=== PATIENT | female | born 1995 | race Hispanic/Latino ===

== ENCOUNTER 2017-11-30 18:11 | Emergency (ER) | payer OTHER, SELFPAY ==
[2017-11-30] MEDS ORDERED: NA CHLORIDE 0.9% 1,000 ML ONE (18:42)
[2017-11-30 18:54] LABS: Absolute Lymphocytes (CBC) 2.3 K/uL (0.7-4.9); Absolute Monocytes 0.9 K/uL (0.1-1.3); Absolute Neutrophil 6.5 K/uL (1.8-8.0); Basophils % 0.2 % (0-1.3); Eosinophils % 2.1 % (0-4.4); Hematocrit 41.6 % (36.0-45.0); Lymphocytes % 22.8 % (15.3-44.8); MCH 30.3 pg (27.0-35.0); MCV 90.8 fL (80-100); MPV 9.3 fL (7.6-11.3); Monocytes % 8.8 % (3.3-12.3); RBC Red Blood Cell Count 4.58 M/uL (3.86-4.86)
[2017-11-30 18:54] LABS: Urine Blood 3+ (NEG); Urine Glucose NEGATIVE (NEG); Urine Protein 3+ (NEG)
[2017-11-30 19:25] LABS: Potassium 3.7 mmol/L (3.5-5.1)
--- NOTE | 2017-11-30 20:32 | ER ---
Nurse's Notes [facility] Name: Callum Alcaraz Age: 22 yrs Sex: Female : 1995 Arrival Date: 11/30/2017 Time: 18:14 Bed 30 Private MD: None, None Diagnosis: Urinary tract infection, site not specified;Threatened Presentation: 11/30 18:19 Presenting complaint: Patient states: Vaginal bleeding since yesterday. Positive home aj test. Transition of care: patient was not received from another setting of care. Onset of symptoms was November 30, 2017. Risk Assessment: Do you want to hurt yourself or someone else? Patient reports no desire to harm self or others. Initial Sepsis Screen: Does the patient meet any 2 criteria? No. Patient's initial sepsis screen is negative. Does the patient have a suspected source of infection? No. Patient's initial sepsis screen is negative. Care prior to arrival: None. 18:19 Method Of Arrival: Ambulatory aj 18:19 Acuity: MORE 3 aj Triage Assessment: 18:21 General: Appears in no apparent distress. comfortable, Behavior is calm, cooperative, aj appropriate for age. Pain: Denies pain. Neuro: Level of Consciousness is awake, alert, obeys commands, Oriented to person, place, time, situation, Appropriate for age. Respiratory: Airway is patent Respiratory effort is even, unlabored, Respiratory pattern is regular, symmetrical. : Reports vaginal bleeding that is brown. Derm: Skin is intact, is healthy with good turgor, Skin is pink, warm \T\ dry. normal. ULTRASOUND TECHNOL: 18:21 9, Full Term 2, Premature 1, 5, Living 3, LMP N/A - Irregular menses aj 18:32 9, Full Term 2, Premature 1, 5, Living 3 mariama Historical: - Allergies: 18:21 No Known Allergies; aj - Home Meds: 18:21 None [Active]; aj - PMHx: 18:21 Seizures; detatched retina; Shaken Baby Syndrome; CVA; aj - PSHx: 18:21 ; aj - Immunization history:: Adult Immunizations up to date. - Social history:: Smoking status: Patient/guardian denies using tobacco. - Ebola Screening: : Patient negative for fever greater than or equal to 101.5 degrees Fahrenheit, and additional compatible Ebola Virus Disease symptoms Patient denies exposure to infectious person Patient denies travel to an Ebola-affected area in the 21 days before illness onset No symptoms or risks identified at this time. - Family history:: not pertinent. Screenin:29 Abuse screen: Denies threats or abuse. Denies injuries from another. Nutritional mg2 screening: No deficits noted. Tuberculosis screening: No symptoms or risk factors identified. Fall Risk IV access (20 points). Assessment: 20:27 Obstetrical Assessment: General assessment: skin warm and dry. General: Appears in no mg2 apparent distress. comfortable, Behavior is calm, cooperative. Pain: Complains of pain in suprapubic area Pain does not radiate. Pain currently is 5 out of 10 on a pain scale. Quality of pain is described as aching, Pain began gradually, 1 day ago. Is intermittent, Alleviated by relaxation, Aggravated by increased activity. Neuro: No deficits noted. Cardiovascular: Capillary refill < 3 seconds Patient's skin is warm and dry. Respiratory: Airway is patent Respiratory effort is even, unlabored, Respiratory pattern is regular, symmetrical. GI: No signs and/or symptoms were reported involving the gastrointestinal system. : Urine is ameya blood, ameya blood. EENT: No signs and/or symptoms were reported regarding the EENT system. Derm: Skin is intact, Skin is pink, warm \T\ dry. normal. Musculoskeletal: Circulation, motion, and sensation intact. Vital Signs: 18:21 BP 126 / 78; Pulse 111; Resp 16; Temp 99.2; Pulse Ox 99% on R/A; Weight 56.7 kg; Height aj 5 ft. 5 in. (165.10 cm); 19:30 BP 109 / 72; Pulse 99; Resp 18; Pulse Ox 100% on R/A; Pain 3/10; mg2 18:21 Body Mass Index 20.80 (56.70 kg, 165.10 cm) Vitals: 20:55 Heart Tones not done. mg2 ED Course: 18:14 Patient arrived in ED. mr 18:15 None, None is Private Physician. mr 18:20 Triage completed. aj 18:21 Arm band placed on left wrist. Patient placed in an exam room. aj 18:24 Tae Chavarria MD is Attending Physician. mariama 19:00 Inserted saline lock: 18 gauge in right antecubital area, using aseptic technique. mg2 Blood collected. 19:10 Les Allen PA is PHCP. chad 19:19 Ultrasound completed. Patient tolerated well. Notified ED Physician guero. sg3 19:20 US Transvaginal Ob In Process Unspecified. EDMS 19:26 Keagan Browne, RN is Primary Nurse. mg2 20:29 Assist provider with pelvic exam: Set up pelvic tray. Performed by Les DAMIAN mg2 Patient tolerated well. 20:30 Patient has correct armband on for positive identification. Placed in gown. Bed in low mg2 position. Side rails up X 1. Door closed. Warm blanket given. 20:55 IV discontinued, intact, bleeding controlled, No redness/swelling at site. Pressure mg2 dressing applied. Administered Medications: 18:38 Drug: NS 0.9% 1000 ml Route: IV; Rate: 1 bolus; Site: right antecubital; mg2 20:30 Follow up: Response: No adverse reaction; IV Status: Completed infusion mg2 Point of Care Testing: Urine : 19:30 hCG Reading: Positive; mg2 Outcome: 20:32 Discharge ordered by . chad 20:54 Discharged to home ambulatory, with family. mg2 20:54 Condition: stable 20:54 Discharge instructions given to patient, family, Instructed on discharge instructions, follow up and referral plans. medication usage, Demonstrated understanding of instructions, follow-up care, medications. 20:55 Patient left the ED. mg2 Signatures: Dispatcher [employer] EDMS Miya Huerta, RN RN Tae Edge MD MD cha Mickail, Joel, PA PA [facility] Sukhi Erendira Rosie Marquez sg3 Keagan Browne, RN RN mg2
--- NOTE | 2017-11-30 20:33 | EDPHYS ---
Physician Documentation [facility] Name: Callum Alcaraz Age: 22 yrs Sex: Female : 1995 Arrival Date: 11/30/2017 Time: 18:14 Bed 30 Private MD: None, None ED Physician Tae Chavarria HPI: 11/30 18:32 This 22 yrs old Female presents to ER via Ambulatory with complaints of mariama Vaginal Bleeding, + Preg <12wks. 18:32 The patient presents to the emergency department with vaginal bleeding. The estimated mariama gestational age is 8 weeks. Previous pregnancies: in previous pregnancies patient has had vaginal delivery. Associated signs and symptoms: Pertinent positives: abdominal pain. The patient has experienced similar episodes in the past, multiple times. 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 - Social history:: Smoking status: Patient/guardian denies using tobacco. - Ebola Screening: : Patient negative for fever greater than or equal to 101.5 degrees Fahrenheit, and additional compatible Ebola Virus Disease symptoms Patient denies exposure to infectious person Patient denies travel to an Ebola-affected area in the 21 days before illness onset No symptoms or risks identified at this time. - Family history:: not pertinent. ROS: 18:32 Constitutional: Negative for fever, chills, and weight loss, Eyes: Negative for injury, mariama pain, redness, and discharge, ENT: Negative for injury, pain, and discharge, Neck: Negative for injury, pain, and swelling, Cardiovascular: Negative for chest pain, palpitations, and edema, Respiratory: Negative for shortness of breath, cough, wheezing, and pleuritic chest pain, Back: Negative for injury and pain, MS/Extremity: Negative for injury and deformity, Skin: Negative for injury, rash, and discoloration, Neuro: Negative for headache, weakness, numbness, tingling, and seizure, Psych: Negative for depression, anxiety, suicide ideation, homicidal ideation, and hallucinations, Allergy/Immunology: Negative for hives, rash, and allergies, Endocrine: Negative for neck swelling, polydipsia, polyuria, polyphagia, and marked weight changes, Hematologic/Lymphatic: Negative for swollen nodes, abnormal bleeding, and unusual bruising. 18:32 Abdomen/GI: Positive for abdominal pain, of the suprapubic area. 18:32 : Positive for pelvic pain, vaginal bleeding. Exam: 18:43 Constitutional: This is a well developed, well nourished patient who is awake, alert, mariama and in no acute distress. Head/Face: Normocephalic, atraumatic. Eyes: Pupils equal round and reactive to light, extra-ocular motions intact. Lids and lashes normal. Conjunctiva and sclera are non-icteric and not injected. Cornea within normal limits. Periorbital areas with no swelling, redness, or edema. ENT: Nares patent. No nasal discharge, no septal abnormalities noted. Tympanic membranes are normal and external auditory canals are clear. Oropharynx with no redness, swelling, or masses, exudates, or evidence of obstruction, uvula midline. Mucous membranes moist. Neck: Trachea midline, no thyromegaly or masses palpated, and no cervical lymphadenopathy. Supple, full range of motion without nuchal rigidity, or vertebral point tenderness. No Meningismus. Chest/axilla: Normal chest wall appearance and motion. Nontender with no deformity. No lesions are appreciated. Cardiovascular: Regular rate and rhythm with a normal S1 and S2. No gallops, murmurs, or rubs. Normal PMI, no JVD. No pulse deficits. Respiratory: Lungs have equal breath sounds bilaterally, clear to auscultation and percussion. No rales, rhonchi or wheezes noted. No increased work of breathing, no retractions or nasal flaring. Abdomen/GI: Soft, non-tender, with normal bowel sounds. No distension or tympany. No guarding or rebound. No evidence of tenderness throughout. Back: No spinal tenderness. No costovertebral tenderness. Full range of motion. Pelvic Exam: Normal external genitalia. Speculum exam with closed cervical os, no discharge or bleeding noted. Bimanual exam with normal adnexa, no adnexal or cervical motion tenderness. Normal uterus. Skin: Warm, dry with normal turgor. Normal color with no rashes, no lesions, and no evidence of cellulitis. MS/ Extremity: Pulses equal, no cyanosis. Neurovascular intact. Full, normal range of motion. Neuro: Awake and alert, GCS 15, oriented to person, place, time, and situation. Cranial nerves II-XII grossly intact. Motor strength 5/5 in all extremities. Sensory grossly intact. Cerebellar exam normal. Normal gait. Psych: Awake, alert, with orientation to person, place and time. Behavior, mood, and affect are within normal limits. 18:43 Abdomen/GI: Inspection: abdomen appears normal, Bowel sounds: active, Palpation: mild abdominal tenderness, in the suprapubic area, Liver: no appreciated palpable abnormalities, Hernia: not appreciated. 18:43 Musculoskeletal/extremity: 18:43 Musculoskeletal/extremity: Exam is negative for acute changes. [facility] Vital Signs: 18:21 BP 126 / 78; Pulse 111; Resp 16; Temp 99.2; Pulse Ox 99% on R/A; Weight 56.7 kg; Height aj 5 ft. 5 in. (165.10 cm); 19:30 BP 109 / 72; Pulse 99; Resp 18; Pulse Ox 100% on R/A; Pain 3/10; mg2 18:21 Body Mass Index 20.80 (56.70 kg, 165.10 cm) MDM: 18:24 Patient medically screened. [facility] 18:44 Data reviewed: vital signs, nurses notes, lab test result(s), radiologic studies, [facility] ultrasound. 20:28 Counseling: I had a detailed discussion with the patient and/or guardian regarding: the [facility] historical points, exam findings, and any diagnostic results supporting the discharge/admit diagnosis, radiology results, the need for outpatient follow up, to return to the emergency department if symptoms worsen or persist or if there are any questions or concerns that arise at home. ED course: urinalysis shows signs of infection, patient will be treated with oral antibiotics. patient is advised to follow up with obgyn in 2 to 3 days for reevaluation. patient's vitals within normal limits. patient given return precautions. . 11/30 18:32 Order name: Quantitative Hcg; Complete Time: 19:27 [facility] 11/30 18:32 Order name: Abo/rh Typing; Complete Time: 19:19 [facility] 11/30 18:32 Order name: Basic Metabolic Panel; Complete Time: 19:27 [facility] 11/30 18:32 Order name: CBC with Diff; Complete Time: 19:11 mariama 11/30 18:52 Order name: Urine Dipstick--Ancillary (enter results); Complete Time: 19:11 bd 11/30 18:52 Order name: Urine --Ancillary (enter results); Complete Time: 19:11 bd 11/30 18:32 Order name: Urine Test (obtain specimen); Complete Time: 19:27 [facility] 11/30 18:32 Order name: IV Saline Lock; Complete Time: 18:38 [facility] 11/30 18:32 Order name: Labs collected and sent; Complete Time: 18:38 [facility] 11/30 18:32 Order name: NPO; Complete Time: 18:38 [facility] 11/30 18:32 Order name: Urine Dipstick-Ancillary (obtain specimen); Complete Time: 19:27 [facility] 11/30 18:32 Order name: US Transvaginal Ob; Complete Time: 20:40 [facility] 11/30 19:23 Order name: ABO/RH no charge; Complete Time: 19:23 EDMS 11/30 19:22 Order name: Pelvic Exam Setup; Complete Time: 20:02 [facility] Administered Medications: 18:38 Drug: NS 0.9% 1000 ml Route: IV; Rate: 1 bolus; Site: right antecubital; mg2 20:30 Follow up: Response: No adverse reaction; IV Status: Completed infusion mg2 Point of Care Testing: Urine : 19:30 hCG Reading: Positive; mg2 Disposition: 12/01 15:25 Co-signature as Attending Physician, Tae Chavarria MD I agree with the assessment and [facility] plan of care. Disposition: 11/30/17 20:32 Discharged to Home. Impression: Urinary tract infection, site not specified, Threatened . - Condition is Stable. - Discharge Instructions: Threatened Miscarriage, Vaginal Bleeding During , First Trimester, and Urinary Tract Infection. - Prescriptions for Cephalexin 500 mg Oral Capsule - take 1 capsule by ORAL route every 12 hours for 10 days; 20 capsule. - Medication Reconciliation Form, Thank You Letter, Antibiotic Education, Prescription Opioid Use form. - Follow up: Private Physician; When: 2 - 3 days; Reason: Continuance of care. Signatures: Dispatcher [employer] Miya Coley, RN RN Tae Edge MD MD cha Mickail, Joel, PA PA jmm Gardose, Michele, MADHU RN mg2 Corrections: (The following items were deleted from the chart) 11/30 20:55 20:32 11/30/2017 20:32 Discharged to Home. Impression: Urinary tract infection, site mg2 not specified; Threatened . Condition is Stable. Forms are Medication Reconciliation Form, Thank You Letter, Antibiotic Education, Prescription Opioid Use. Follow up: Private Physician; When: 2 - 3 days; Reason: Continuance of care. chad
--- NOTE | 2017-11-30 20:38 | RAD REPORT ---
EXAM DESCRIPTION: US - Transvaginal OB - 11/30/2017 7:19 pm CLINICAL HISTORY: Positive study pelvic pain, abdominal cramping Preliminary findings provided at the time of the study. COMPARISON: None. FINDINGS: Normal size uterus present. No myometrial abnormality. A very irregularly-shaped intrauterine gestational sac identified. Yolk sac and pole are identi fiable. Multiple efforts failed to identify any cardiac activity. pole measures 6 weeks 4 days size. Yolk sac is seen. Both ovaries are identifiable and show no suspicious findings. Blood flow seen in both ovaries. No he morrhage or fluid in the cul-de-sac. IMPRESSION: A 6 week 4 day size pole is identified; however, no cardiac activity is identifiab le. The gestational sac is very irregular in shape. No large hematoma or mass within the endometrial cavi ty.
== END 2017-11-30 20:55 | disposition home or self-care (01) ==
LOC: ER 18:11
DX: O20.0 Threatened abortion (principal); O23.41 Unspecified infection of urinary tract in pregnancy, first trimester; Z3A.08 8 weeks gestation of pregnancy
CPT/HCPCS: 36415; 76817; 80048; 81003; 81025; 84702; 85025; 86900; 86901; 96360; 96361; 99284; J7030

== ENCOUNTER 2020-01-07 11:32 | Emergency (ER) | payer OTHER, SELFPAY ==
--- OUTSIDE RECORDS SUMMARY | 2020-01-07 11:34 | XMS REPORT | Continuity of Care Document ---
:1995 Author Organization [facility] t Address [facility] [place] [address] Care Team Providers Name Role Phone Unavailable Unavailable Unavailable Problems Condition Condition Condition Status Onset Resolution Last Treating Co mments Source Name Details Category Date Date Treatment Clinician Date Benign Benign Problem Active [place] [facility] da hypertensi Hypertensi 00:00: Me dical on on Group complicati Complicati ng ng , , childbirth Childbirth and the and the puerperium Puerperium Uterine Uterine Problem Active [place] from Scar from 09-11 da previous Previous 00:00: Medica l surgery in Surgery in 00 Gr oup , , childbirth Childbirth and the and the puerperium Puerperium with with problem Problem Problem Active [place] 5-03 da 00:00: Medical 00 Group Epilepsy Epilepsy Problem Active [place] in mother in Mother 09-11 da complicati Complicati 00:00: Me dical ng ng 00 Group Allergies, Adverse Reactions, Alerts This patient has no known allergies or adverse reactions. Social History Smoking Status Start Date Stop Date Source Smoker, Current Status Unknown [facility] Medications Ordered Filled Start Stop Current Ordering Indication Dosage Frequency Signature Comments Components Source Medication Medication Date Date Medication? Clinician (SIG) Name Name No [facility] Vital Signs Vital Name Observation Time Observation Value Comments Source BP Diastolic 2018-09-11 00:00:00 89 mm[Hg] [facility] Height 2018-09-11 00:00:00 64 [in_i] [facility] BMI (Body Mass 2018-09-11 00:00:00 26.6 kg/m2 [facility]) Group BP Systolic 2018-09-11 00:00:00 132 mm[Hg] [facility] Body Weight 2018-09-11 00:00:00 154.7 [lb_av] [facility] Procedures Procedure Date / Time Performed Performing Clinician [facility] e US, obstetric, limited 2018-09-11 00:00:00 [facility] Caesarean Section 2016-09-10 00:00:00 [facility] Plan of Care Planned Activity Planned Date Details Comments Source Diagnostic Test 2018-09-11 urinalysis, [facility] dical Pending 00:00:00 dipstick [code = Group urinalysis, dipstick] Encounters Start End Encounter Admission Attending Care Care Encounter Source Date/Time Date/Time Type Type Clinicians Facility Department ID 2018-09-11 2018-09-11 [facility] [place] - [id number] M [facility] 00:00:00 00:00:00 [facility]arreal MD: [address] [facility] [address], [place] [address] , Ph. [phone] Results Test Description Test Time Test Comments Results Result Comments Source Urinalysis macro (dipstick) panel - Urine 2018-09-11 16:26:4 8 Test Item Value Reference Range Interpretation Comme nts Leukocytes (test code = Leukocytes) Small Nitrite (test code = Nitrite) negative Urobilinogen (test code = Urobilinogen) .2 Protein (test code = Protein) Negative pH (test code = pH) 6.5 Blood (test code = Blood) Negative Specific [place] (test code = Specific [place]) 1.020 Ketone (test code = Ketone) Negative Bilirubin (test code = Bilirubin) Negative Glucose (test code = Glucose) Negative Appearance (test code = Appearance) Clear Color (test code = Color) Yellow [facility]
[2020-01-07 12:30] LABS: Absolute Lymphocytes (CBC) 1.9 K/uL (0.7-4.9); Basophils % 0.3 % (0-1.3); Hematocrit 39.8 % (36.0-45.0); Lymphocytes % 20.9 % (15.3-44.8); MPV 9.5 fL (7.6-11.3); RBC Red Blood Cell Count 4.47 M/uL (3.86-4.86)
[2020-01-07 12:54] LABS: Urine Blood NEGATIVE (NEG); Urine Glucose NEGATIVE (NEG); Urine Protein NEGATIVE (NEG); Urine Specific Gravity 1.025 (1.005-1.030)
[2020-01-07 13:00] LABS: BUN Blood Urea Nitrogen 8 mg/dL (7-18); Bicarbonate 24 mmol/L (21-32); Glucose Level 78 mg/dL (74-106); HCG, Quantitative 58612 mIU/mL (1-3); Potassium 3.8 mmol/L (3.5-5.1); Sodium Level 137 mmol/L (136-145)
--- NOTE | 2020-01-07 13:03 | RAD REPORT ---
EXAM DESCRIPTION: US - 1St Trimest Single 1St Fetus - 01/07/2020 12:24 pm CLINICAL HISTORY: pelvic pain, COMPARISON: No comparisons FINDINGS: Single intrauterine gestation is identified. Heart rate is 163 BPM. [place]-rump length mirian urement corresponds to a 12 week 4 day age. Anatomic assessment is grossly unremarkable but is limite d at 12 weeks age. Amniotic fluid volume is normal. Anterior placenta shows no abruption, marginal hematoma or acute fin ding. Neither ovary was identifiable due to bowel. No suspicion for adnexal mass. No blood or fluid in the cul de sac. IMPRESSION: Single 12 week 4 day IUP showing normal heart rate and no gross anatomic abnormality. Amniotic fluid volume is normal. Anterior placenta shows no suspicious finding.
--- NOTE | 2020-01-07 13:21 | EDPHYS ---
Physician Documentation [facility] Name: Callum Alcaraz Age: 24 yrs Sex: Female : 1995 Arrival Date: 01/07/2020 Time: 11:35 Bed 14 Private MD: ED Physician Juliocesar Mccarty HPI: 01/06 11:56 This 24 yrs old Female presents to ER via Ambulatory with complaints of jmm , Abdominal Pain. 11:56 The patient presents with pelvic pain. Onset: The symptoms/episode began/occurred jmm gradually, 2 week(s) ago. Modifying factors: The symptoms are alleviated by nothing, the symptoms are aggravated by nothing. Associated signs and symptoms: Pertinent negatives: fever, vaginal bleeding, vomiting. This is a 24 year old female with a history fo cva, epilepsy that presents to the ED with complaints of pelvic pain which began approx 2 weeks ago. Patient states this occurred after heavy lifting. Denies fever. Denies vaginal bleeding. Patient states having a home test positive.. Historical: - Allergies: 12:00 No Known Allergies; sv - PMHx: 12:00 CVA; detatched retina; Seizures; SHAKEN BABY SYNDROME; sv - PSHx: 12:00 ; Knee surgery; sv - Immunization history:: Adult Immunizations up to date. - Social history:: Smoking status: Patient/guardian denies using tobacco. ROS: 11:56 Constitutional: Negative for fever, chills, and weight loss, Cardiovascular: Negative jmm for chest pain, palpitations, and edema, Respiratory: Negative for shortness of breath, cough, wheezing, and pleuritic chest pain. 11:56 : Positive for pelvic pain. 11:56 All other systems are negative. Exam: 11:56 Constitutional: This is a well developed, well nourished patient who is awake, alert, jmm and in no acute distress. Head/Face: atraumatic. Eyes: EOMI, no conjunctival erythema appreciated ENT: Moist Mucus Membranes Neck: Trachea midline, Supple Chest/axilla: Normal chest wall appearance and motion. Cardiovascular: Regular rate and rhythm. No edema appreciated Respiratory: Normal respirations, no respiratory distress appreciated Abdomen/GI: Non distended, soft Back: Normal ROM Skin: General appearance color normal MS/ Extremity: Moves all extremities, no obvious deformities appreciated, no edema noted to the lower extremities Neuro: Awake and alert, normal gait Psych: Behavior is normal, Mood is normal, Patient is cooperative and pleasant Vital Signs: 11:58 BP 127 / 85; Pulse 95; Resp 16; Temp 98.5; Pulse Ox 100% ; Weight 58.97 kg; Height 5 sv ft. 5 in. (165.10 cm); Pain 3/10; 11:58 Body Mass Index 21.63 (58.97 kg, 165.10 cm) sv MDM: 11:56 Patient medically screened. [facility] 13:19 Data reviewed: vital signs, nurses notes. Counseling: I had a detailed discussion with paxton the patient and/or guardian regarding: the historical points, exam findings, and any diagnostic results supporting the discharge/admit diagnosis, lab results, radiology results, the need for outpatient follow up, to return to the emergency department if symptoms worsen or persist or if there are any questions or concerns that arise at home. ED course: Patient is alert and non toxic in appearance in the ED. US reveals IUP. Patient advised to follow up with OB for further evaluation. Patient is otherwise given strict return precautions. patient understood and agrees with the plan of care.. 01/06 12:01 Order name: Quantitative Hcg; Complete Time: 13:06 [facility] 01/06 12:01 Order name: Abo/rh Typing; Complete Time: 12:50 [facility] 01/06 12:01 Order name: Basic Metabolic Panel; Complete Time: 13:06 [facility] 01/06 12:01 Order name: CBC with Diff; Complete Time: 12:44 [facility] 01/06 12:22 Order name: Urine Dipstick--Ancillary (enter results); Complete Time: 12:55 01/06 12:22 Order name: Urine --Ancillary (enter results); Complete Time: 12:55 01/06 12:01 Order name: Urine Test (obtain specimen); Complete Time: 12:45 [facility] 01/06 12:01 Order name: IV Saline Lock; Complete Time: 12:45 [facility] 01/06 12:01 Order name: Labs collected and sent; Complete Time: 12:45 [facility] 01/06 12:01 Order name: NPO; Complete Time: 12:45 [facility] 01/06 12:01 Order name: Urine Dipstick-Ancillary (obtain specimen); Complete Time: 12:45 [facility] 01/06 12:01 Order name: 1st Trimest Single 1st Fetus; Complete Time: 13:06 [facility] Administered Medications: No medications were administered Disposition: 17:39 Co-signature as Attending Physician, Juliocesar Mccarty MD I agree with the assessment and kdr plan of care. Disposition: 01/07/20 13:20 Discharged to Home. Impression: Pelvic and perineal pain, Urinary tract infection, site not specified. - Condition is Stable. - Discharge Instructions: and Urinary Tract Infection. - Prescriptions for Keflex 500 mg Oral Capsule - take 1 capsule by ORAL route every 12 hours for 10 days; 20 capsule. - Medication Reconciliation Form, Thank You Letter, Antibiotic Education, Prescription Opioid Use form. - Follow up: Private Physician; When: 2 - 3 days; Reason: Recheck today's complaints, Continuance of care, Re-evaluation by your physician. Signatures: Dispatcher [employer] Odilia Hilario RN RN sv Rittger, Kevin, MD MD kdr Mickail, Joel, PA PA [facility] [address], RN RN aa5 Corrections: (The following items were deleted from the chart) 13:34 13:20 01/07/2020 13:20 Discharged to Home. Impression: Pelvic and perineal pain; aa5 Urinary tract infection, site not specified. Condition is Stable. Forms are Medication Reconciliation Form, Thank You Letter, Antibiotic Education, Prescription Opioid Use. Follow up: Private Physician; When: 2 - 3 days; Reason: Recheck today's complaints, Continuance of care, Re-evaluation by your physician. [facility]
--- NOTE | 2020-01-07 13:21 | ER ---
Nurse's Notes [facility] Name: Callum Alcaraz Age: 24 yrs Sex: Female : 1995 Arrival Date: 01/07/2020 Time: 11:35 Bed 14 Private MD: Diagnosis: Pelvic and perineal pain;Urinary tract infection, site not specified Presentation: 01/06 11:58 Chief complaint: Patient states: lower abd pain x 2 days. Reports recent positive UPT 3 sv days ago, has irregular menstrual cycles. Coronavirus screen: Client denies travel out of the [place] in the last 14 days. At this time, the client does not indicate any symptoms associated with coronavirus-19. Ebola Screen: No symptoms or risks identified at this time. Initial Sepsis Screen: Does the patient meet any 2 criteria? HR > 90 bpm. No. Patient's initial sepsis screen is negative. Does the patient have a suspected source of infection? No. Patient's initial sepsis screen is negative. Risk Assessment: Do you want to hurt yourself or someone else? Patient reports no desire to harm self or others. Onset of symptoms was January 05, 2020. 11:58 Method Of Arrival: Ambulatory sv 11:58 Acuity: MORE 3 sv Triage Assessment: 11:58 General: Appears in no apparent distress. uncomfortable, slender, well developed, sv Behavior is calm, cooperative, appropriate for age. Pain: Complains of pain in suprapubic area, right lower quadrant and left lower quadrant Pain currently is 7 out of 10 on a pain scale. Neuro: Level of Consciousness is awake, alert, obeys commands, Oriented to person, place, time, situation, Moves all extremities. Full function Gait is steady. Respiratory: Respiratory effort is even, unlabored, Respiratory pattern is regular, symmetrical. GI: Reports lower abdominal pain. : Denies discharge, vaginal bleeding. Derm: Skin is pink, warm \T\ dry. Historical: - Allergies: 12:00 No Known Allergies; sv - PMHx: 12:00 CVA; detatched retina; Seizures; SHAKEN BABY SYNDROME; sv - PSHx: 12:00 ; Knee surgery; sv - Immunization history:: Adult Immunizations up to date. - Social history:: Smoking status: Patient/guardian denies using tobacco. Screenin:58 Abuse screen: Denies threats or abuse. Denies injuries from another. Nutritional sv screening: No deficits noted. Tuberculosis screening: No symptoms or risk factors identified. Fall Risk None identified. Assessment: 12:55 Reassessment: Patient appears in no apparent distress at this time. No changes from sv previously documented assessment. Patient and/or family updated on plan of care and expected duration. Pain level reassessed. Patient is alert, oriented x 3, equal unlabored respirations, skin warm/dry/pink. 13:30 Reassessment: Patient is alert, oriented x 3, equal unlabored respirations, skin aa5 warm/dry/pink. Vital Signs: 11:58 BP 127 / 85; Pulse 95; Resp 16; Temp 98.5; Pulse Ox 100% ; Weight 58.97 kg; Height 5 sv ft. 5 in. (165.10 cm); Pain 3/10; 11:58 Body Mass Index 21.63 (58.97 kg, 165.10 cm) sv ED Course: 11:35 Patient arrived in ED. mr 11:55 Les Allen PA is PHCP. jmm 11:55 Juliocesar Mccarty MD is Attending Physician. jmm 11:58 Odilia Harris, MADHU is Primary Nurse. sv 11:58 Nurse Practitioner and/or Physician Utilization Review Rn to see patient. sv 11:58 Patient has correct armband on for positive identification. Placed in gown. Bed in low sv position. Call light in reach. Pulse ox on. NIBP on. Door closed. Head of bed elevated. 11:59 Triage completed. sv 12:00 Arm band placed on Patient placed in an exam room, on a stretcher. sv 12:15 Inserted saline lock: 20 gauge in left antecubital area, using aseptic technique. Blood sv collected. Flushed left antecubital with 5 ml normal saline. 12:24 US 1st Trimest Single 1st Fetus In Process Unspecified. EDMS 13:30 No provider procedures requiring assistance completed. IV discontinued, intact, aa5 bleeding controlled, No redness/swelling at site. Pressure dressing applied. Administered Medications: No medications were administered Outcome: 13:20 Discharge ordered by . jmm 13:30 Discharged to home ambulatory. aa5 13:30 Condition: stable 13:30 Discharge instructions given to patient, Instructed on discharge instructions, follow up and referral plans. medication usage, Demonstrated understanding of instructions, follow-up care, medications, Prescriptions given X 1. 13:34 Patient left the ED. aa5 Signatures: Dispatcher [employer] Odilia Hilario, RN Les Garvin PA PA jmm Rivera, Mary mr Jad, MADHU Varner RN aa5
[2020-01-11 12:51] VITALS: BP 127/85; TEMP 98.5; O2SAT 100
== END 2020-01-07 13:34 | disposition home or self-care (01) ==
LOC: ER 11:32
DX: O23.41 Unspecified infection of urinary tract in pregnancy, first trimester (principal); Z3A.12 12 weeks gestation of pregnancy
CPT/HCPCS: 36415; 76801; 80048; 81003; 81025; 84702; 85025; 86900; 86901; 99284

== ENCOUNTER 2023-11-06 18:02 | Emergency (ER) | payer OTHER ==
--- OUTSIDE RECORDS SUMMARY | 2023-11-06 18:07 | XMS REPORT | Continuity of Care Document ---
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 (test code = 3262) Neg Negative - Negati ve POCT U PROT (test code = 3259) Trace Negative - Negat elise POCT U GLU (test code = 3256) Nml Negative - Negati ve POCT U KETONE (test code = 3258) None Negative - Neg ative POCT U BLD (test code = 3257) Trace Negative - Negati ve [facility] W Auto Differential panel - Blood 2020-06-29 08:57:00* Test Item Value Reference Range Interpretation Comme nts white blood count (test code = white blood count) 11.0 K/uL 4.0-11.5 red blood count (test code = red blood count) 3.79 M/uL 3.80-5.20 L hemoglobin (test code = hemoglobin) 11.9 g/dL 10.5-15.7 hematocrit (test code = hematocrit) 36.2 % 34.0-50.0 MCV [Entitic volume] (test c ode = 20452-1) 95.5 fL 86-100 mean corpuscular hemoglobin (test code = mean corpuscular hemoglobin) 31.4 pg 26.2-33.4 mean corpuscular HGB conc (t est code = mean corpuscular HGB conc) 32.9 g/dL 30-34 red cell distribution width (test code = red cell distribution width) 13.3 % 12.0-15.5 platelet count (test code = platelet count) 118 K/uL 165-450 L Platelets reticulated/100 platelets in Blood by Automated count (test code = 19439-2) 7.0 % 0-8 mean platelet volume (test c ode = mean platelet volume) 11.4 fL 9.4-12.6 Segmented neutrophils/100 leukocytes in Blood (test code = 60543-8) 77.8 % 44.4-80.1 Immature granulocytes [#/vol ume] in Blood (test code = 28106-0) 0.1 K/uL 0.0-0.03 H lymphocyte% (test code = lymphocyte%) 13.0 % 10.0-50.0 mono % (test code = mono %) 8.0 % 3.6-12.0 eos % (test code = eos %) 0.3 % 0.0-5.4 Basophils/100 leukocytes in Unspecified specimen (test code = 26380-1) 0.4 % 0.1-1.2 Band form neutrophils [#/vol ume] in Blood (test code = 92929-2) 8.56 K/uL 1.56-6.13 H Lymphocytes [#/volume] in Unspecified specimen by Automated count (test code = 49579-2) 1.4 K/uL 1.18-3.74 mono # (test code = mono #) 0.88 K/uL 0.24-0.86 H eos # (test code = eos #) 0.03 K/uL 0.04-0.36 L basophil # (test code = baso barak #) 0.04 K/uL 0.01-0.08 NRBC% (test code = NRBC%) 0 /100 WBC 0-0.2 NRBC# (test code = NRBC#) 0 K/uL [facility] [Presence] in Serum by [id number] 05:45:00* Test Item Value Reference Range Interpretation Comme nts Reagin Ab [Presence] in Seru m by RPR (test code = 16875-7) nonreactive nonreactive [facility] HospitalHepatitis B virus surface Ag [Presence] in Serum 2020-06-28 05:45:00* Test Item Value Reference Range Interpretation Comme nts .hepatitis B surface antigen (test code = .hepatitis B surface antigen) negative negative [facility] HospitalCB W Auto Differential panel - [id number] 05:45:00 * Test Item Value Reference Range Interpretation Comme nts white blood count (test code = white blood count) 8.9 K/uL 4.0-11.5 red blood count (test code = red blood count) 4.49 M/uL 3.80-5.20 hemoglobin (test code = hemoglobin) 14.2 g/dL 10.5-15.7 hematocrit (test code = hematocrit) 41.6 % 34.0-50.0 MCV [Entitic volume] (test c ode = 41699-9) 92.7 fL 86-100 mean corpuscular hemoglobin (test code = mean corpuscular hemoglobin) 31.6 pg 26.2-33.4 mean corpuscular HGB conc (t est code = mean corpuscular HGB conc) 34.1 g/dL 30-34 H red cell distribution width (test code = red cell distribution width) 13.4 % 12.0-15.5 platelet count (test code = platelet count) 139 K/uL 165-450 L Platelets reticulated/100 platelets in Blood by Automated count (test code = 66984-9) 7.7 % 0-8 mean platelet volume (test c ode = mean platelet volume) 11.8 fL 9.4-12.6 Segmented neutrophils/100 leukocytes in Blood (test code = 50687-6) 65.4 % 44.4-80.1 Immature granulocytes [#/vol ume] in Blood (test code = 19609-6) 0.1 K/uL 0.0-0.03 H lymphocyte% (test code = lymphocyte%) 23.6 % 10.0-50.0 mono % (test code = mono %) 8.9 % 3.6-12.0 eos % (test code = eos %) 0.8 % 0.0-5.4 Basophils/100 leukocytes in Unspecified specimen (test code = 92722-2) 0.3 % 0.1-1.2 Band form neutrophils [#/vol ume] in Blood (test code = 42890-3) 5.82 K/uL 1.56-6.13 Lymphocytes [#/volume] in Unspecified specimen by Automated count (test code = 30602-4) 2.1 K/uL 1.18-3.74 mono # (test code = mono #) 0.79 K/uL 0.24-0.86 eos # (test code = eos #) 0.07 K/uL 0.04-0.36 basophil # (test code = baso barak #) 0.03 K/uL 0.01-0.08 NRBC% (test code = NRBC%) 0 /100 WBC 0-0.2 NRBC# (test code = NRBC#) 0 K/uL [facility] and Indirect antibody screen panel - Blood 2020-06-28 05:45:00* Test Item Value Reference Range Interpretation Comme nts Rh [Type] in Blood (test cod e = 01164-1) 4+ ABO and Rh group panel - Blo od (test code = 33687-2) B positive [facility] Auto Differential panel - [id number] 04:06:00 * Test Item Value Reference Range Interpretation Comme nts white blood count (test code = white blood count) 8.7 K/uL 4.0-11.5 red blood count (test code = red blood count) 4.87 M/uL 3.80-5.20 hemoglobin (test code = hemoglobin) 15.2 g/dL 10.5-15.7 hematocrit (test code = hematocrit) 44.9 % 34.0-50.0 MCV [Entitic volume] (test c ode = 01476-4) 92.2 fL 86-100 mean corpuscular hemoglobin (test code = mean corpuscular hemoglobin) 31.2 pg 26.2-33.4 mean corpuscular HGB conc (t est code = mean corpuscular HGB conc) 33.9 g/dL 30-34 red cell distribution width (test code = red cell distribution width) 13.5 % 12.0-15.5 platelet count (test code = platelet count) 133 K/uL 165-450 L mean platelet volume (test c ode = mean platelet volume) 12.1 fL 9.4-12.6 Segmented neutrophils/100 leukocytes in Blood (test code = 00528-9) 66.7 % 44.4-80.1 Immature granulocytes [#/vol ume] in Blood (test code = 55218-8) 0.1 K/uL 0.0-0.03 H lymphocyte% (test code = lymphocyte%) 24.3 % 10.0-50.0 mono % (test code = mono %) 7.2 % 3.6-12.0 eos % (test code = eos %) 0.7 % 0.0-5.4 Basophils/100 leukocytes in Unspecified specimen (test code = 29236-3) 0.3 % 0.1-1.2 Band form neutrophils [#/vol ume] in Blood (test code = 25242-5) 5.80 K/uL 1.56-6.13 Lymphocytes [#/volume] in Unspecified specimen by Automated count (test code = 25070-8) 2.1 K/uL 1.18-3.74 mono # (test code = mono #) 0.63 K/uL 0.24-0.86 eos # (test code = eos #) 0.06 K/uL 0.04-0.36 basophil # (test code = baso barak #) 0.03 K/uL 0.01-0.08 NRBC% (test code = NRBC%) 0 /100 WBC 0-0.2 NRBC# (test code = NRBC#) 0 K/uL [facility] HospitalUrinalysis macro (dipstick) panel - [id number] 14:36:29* Test Item Value Reference Range Interpretation Comme nts Leukocytes (test code = Leukocytes) Small Nitrite (test code = Nitrite) negative Urobilinogen (test code = Urobilinogen) .2 Protein (test code = Protein) Negative pH (test code = pH) 7.5 Blood (test code = Blood) Negative Specific [place] (test code = Specific [place]) 1.025 Ketone (test code = Ketone) Negative Bilirubin (test code = Bilirubin) Negative Glucose (test code = Glucose) Negative Appearance (test code = Appearance) Clear Color (test code = Color) Yellow [facility] Groupculture, vaginal/rectal, streptococcus group [id number] 00:00:00* Test Item Value Reference Range Interpretation Comme nts group B strep (test code = group B strep) abnormal A group B strep rflx sens if pos (test code = group B strep rflx sens if pos) please see results/comment A [facility] Groupnon-stress [id number] 15:38:28* Test Item Value Reference Range Interpretation Comme nts Reactive (test code = Reactive) Yes Contractions (test code = Contractions) No [facility]non-stress [id number] 15:38:28* Test Item Value Reference Range Interpretation Comme nts Reactive (test code = Reactive) Yes Contractions (test code = Contractions) No [facility] GroupUrinalysis macro (dipstick) panel - [id number] 15:03:01* Test Item Value Reference Range Interpretation Comme nts Leukocytes (test code = Leukocytes) Small Nitrite (test code = Nitrite) negative Urobilinogen (test code = Urobilinogen) .2 Protein (test code = Protein) Negative pH (test code = pH) 7.0 Blood (test code = Blood) Negative Specific [place] (test code = Specific [place]) 1.025 Ketone (test code = Ketone) Negative Bilirubin (test code = Bilirubin) Negative Glucose (test code = Glucose) Negative Appearance (test code = Appearance) Clear Color (test code = Color) Yellow [facility] GroupUrinalysis macro (dipstick) panel - [id number] 15:03:01* Test Item Value Reference Range Interpretation Comme nts Leukocytes (test code = Leukocytes) Small Nitrite (test code = Nitrite) negative Urobilinogen (test code = Urobilinogen) .2 Protein (test code = Protein) Negative pH (test code = pH) 7.0 Blood (test code = Blood) Negative Specific [place] (test code = Specific [place]) 1.025 Ketone (test code = Ketone) Negative Bilirubin (test code = Bilirubin) Negative Glucose (test code = Glucose) Negative Appearance (test code = Appearance) Clear Color (test code = Color) Yellow [facility] GroupUrinalysis macro (dipstick) panel - [id number] 15:18:18* Test Item Value Reference Range Interpretation Comme nts Leukocytes (test code = Leukocytes) Negative Nitrite (test code = Nitrite) negative Urobilinogen (test code = Urobilinogen) .2 Protein (test code = Protein) Negative pH (test code = pH) 6.0 Blood (test code = Blood) Negative Specific [place] (test code = Specific [place]) 1.030 Ketone (test code = Ketone) Negative Bilirubin (test code = Bilirubin) Negative Glucose (test code = Glucose) Negative Appearance (test code = Appearance) Clear Color (test code = Color) Yellow [facility] HospitalUrinalysis macro (dipstick) panel - [id number] 15:18:18* Test Item Value Reference Range Interpretation Comme nts Leukocytes (test code = Leukocytes) Negative Nitrite (test code = Nitrite) negative Urobilinogen (test code = Urobilinogen) .2 Protein (test code = Protein) Negative pH (test code = pH) 6.0 Blood (test code = Blood) Negative Specific [place] (test code = Specific [place]) 1.030 Ketone (test code = Ketone) Negative Bilirubin (test code = Bilirubin) Negative Glucose (test code = Glucose) Negative Appearance (test code = Appearance) Clear Color (test code = Color) Yellow [facility]CB W Auto Differential panel - [id number] 03:37:00 * Test Item Value Reference Range Interpretation Comme nts white blood count (test code = white blood count) 10.7 K/uL 4.0-11.5 red blood count (test code = red blood count) 4.14 M/uL 3.80-5.20 hemoglobin (test code = hemoglobin) 12.7 g/dL 10.5-15.7 hematocrit (test code = hematocrit) 38.6 % 34.0-50.0 MCV [Entitic volume] (test c ode = 78522-0) 93.2 fL 86-100 mean corpuscular hemoglobin (test code = mean corpuscular hemoglobin) 30.7 pg 26.2-33.4 mean corpuscular HGB conc (t est code = mean corpuscular HGB conc) 32.9 g/dL 30-34 red cell distribution width (test code = red cell distribution width) 14.1 % 12.0-15.5 platelet count (test code = platelet count) 201 K/uL 165-450 mean platelet volume (test c ode = mean platelet volume) 10.8 fL 9.4-12.6 Segmented neutrophils/100 leukocytes in Blood (test code = 49365-3) 69.3 % 44.4-80.1 Immature granulocytes [#/vol ume] in Blood (test code = 62595-6) 0.2 K/uL 0.0-0.03 H lymphocyte% (test code = lymphocyte%) 20.0 % 10.0-50.0 mono % (test code = mono %) 7.0 % 3.6-12.0 eos % (test code = eos %) 1.8 % 0.0-5.4 Basophils/100 leukocytes in Unspecified specimen (test code = 07060-5) 0.4 % 0.1-1.2 Band form neutrophils [#/vol ume] in Blood (test code = 00333-7) 7.45 K/uL 1.56-6.13 H Lymphocytes [#/volume] in Unspecified specimen by Automated count (test code = 66182-3) 2.2 K/uL 1.18-3.74 mono # (test code = mono #) 0.75 K/uL 0.24-0.86 eos # (test code = eos #) 0.19 K/uL 0.04-0.36 basophil # (test code = baso barak #) 0.04 K/uL 0.01-0.08 NRBC% (test code = NRBC%) 0 /100 WBC 0-0.2 NRBC# (test code = NRBC#) 0 K/uL [facility] GroupABO & Rh group [Type] in [id number] 03:37:00* Test Item Value Reference Range Interpretation Comme nts Rh [Type] in Blood (test cod e = 18956-9) 4+ ABO and Rh group panel - Blo od (test code = 68916-1) B positive [facility] group antibody screen [Presence] in Serum or Plasma 2020-04-17 03:37:00* Test Item Value Reference Range Interpretation Comme nts Blood group antibody screen [Presence] in Serum or Plasma (test code = 890-4) negative [facility]HIV 1+2 Ab [Presence] in Yqcvn0145-10-72 03:37:00HIV P24 AgHIV-1/2 [facility]Scott [facility] HospitalHepatitis B virus surface Ag [Presence] in [id number] 03:37:00* Test Item Value Reference Range Interpretation Comme nts .hepatitis B surface antigen (test code = .hepatitis B surface antigen) negative negative [facility] HospitalReagin Ab [Presence] in Serum by [id number] 03:37:00* Test Item Value Reference Range Interpretation Comme nts Reagin Ab [Presence] in Seru m by RPR (test code = 92946-2) nonreactive nonreactive [facility] HospitalBacteria identified in Urine by [id number] 03:37:00* Test Item Value Reference Range Interpretation Comme nts Bacteria identified in Urine by Culture (test code = 630-4) no growth at 2 days [facility] HospitalUrinalysis macro (dipstick) panel - [id number] 16:26:48* Test Item Value Reference Range Interpretation Comme nts Leukocytes (test code = Leukocytes) Small Nitrite (test code = Nitrite) negative Urobilinogen (test code = Urobilinogen) .2 Protein (test code = Protein) Negative pH (test code = pH) 6.5 Blood (test code = Blood) Negative Specific [place] (test code = Specific [place]) 1.020 Ketone (test code = Ketone) Negative Bilirubin (test code = Bilirubin) Negative Glucose (test code = Glucose) Negative Appearance (test code = Appearance) Clear Color (test code = Color) Yellow [facility] Notes Date/Time Note Provider Source 2023-10-22 13:53:13 6104-35-75P18:53:13F ormatting of this note might be different from the original.Noted. 61307-6Hfoktnmkt encounter WpguSZ1548-74-82Y98:53:19Teleph one encounter NoteTXT1.2.840.326109.1.13.104. 2.7.2.684737|[id number] ble for patient bibv56464-1OtcuTFVDPQCQDPNTnxmi tted C-CDA narrative [id number] Garcia [address]TXTX[address] 07928LCMTMTORAEAZYLSRVAYGZS6933 -06-12T13:53:191.2.840.881812.1 .72.3.15|1.2.840.183359.1.13.10 4.2.7.2.727879_[id number] Kiarra Odom [facility] 2023-10-22 13:30:19 0163-78-73B50:30:19F ormatting of this note might be different from the original.Called patient and scheduled appointment at patient's desired time. 19016-2Sjexmdufv encounter JferFS6668-94-12C61:30:45Teleph one encounter NoteTXT1.2.840.105501.1.13.104. 2.7.2.761524|[id number] ble for patient ywlb81589-0GmymBTUHMQOQKUXSubyl tted C-CDA narrative [id number] [address]TXTX[address] 34574FRFERPFYAGUFYREEMXZBJL7416 -06-12T13:30:451.2.840.164044.1 .72.3.15|1.2.840.132068.1.13.10 4.2.7.2.727879_[id number] Obie Byers [facility] 2023-10-22 11:40:48 5552-10-22B95:40:48F ormatting of this note might be different from the original.Copied from [facility] #[id number]. Topic: Appointment - Reschedule Appointment>> Oct 22, 2023 11:38 AM Patient Home Care Manager wrote:Patient is calling to reschedule today's high risk appt. Please call. Thank you. 11079-5Srtnqrkzz encounter ZdksVB4275-04-93Y14:53:19Teleph one encounter NoteTXT1.2.840.424356.1.13.104. 2.7.2.175359|[id number] ble for patient dcgy78772-4ZplaEBPVPRUPUGIDsmuo tted C-CDA narrative [id number] [place] [address]TXTX[address] 82766DOUMJSWGNPGMYGDNJSDTLL4763 -06-12T13:53:191.2.840.040450.1 .72.3.15|1.2.840.507790.1.13.10 4.2.7.2.727879_[id number] [facility] 12:49:45 6788-35-13T49:49:45F ormatting of this note might be different from the original.Patient stated it shows that she is a current tobacco smoker on her AVS and she has asked for it to be removed but it is still there. Informed patient to ask at next visit since it is on her problem list and provider is the only one that can change dx, verbalized understanding. 14462-5Vnbxtfxhb encounter FexdME4769-62-78S35:51:29Teleph one encounter NoteTXT1.2.840.522162.1.13.104. 2.7.2.975836|[id number] ble for patient rrrv92657-1PipoCEJEMFGLIGDIhbyb tted C-CDA narrative qprc461868709Tryrpdqf Garcia [address]TX[address] 30046CRGIGRCGSNJCOUKPFFNPVE4869 -05-13T12:51:291.2.840.894717.1 .72.3.15|1.2.840.375025.1.13.10 4.2.7.2.727879_[id number] Kiarra Odom [facility] 2023-09-22 12:14:16 8675-71-85X31:14:16F ormatting of this note might be different from the original.Copied from [facility] #[id number]. Topic: Clinical - Medical Advice>> September 22, 2023 12:10 PM Patient Home Care Manager wrote:Callum Gale is a 28 year old femalePt states her chart states she is a current tobacco user and she quit 6 years ago and requesting that to be updated. . Please call pt at [phone] (home) 06583-8Mafmjmhce encounter TgktIY6916-90-21M67:16:15Teleph one encounter NoteTXT1.2.840.989598.1.13.104. 2.7.2.144530|[id number] ble for patient buxb99640-5OmcqDDTFWJKWISORjyto tted C-CDA narrative [id number] A [address] WdnyArefdwjnbWbfvfpllqIDFA64246 19241BAPVJVAUNYMDGUTJVCOMFQ4815 -05-13T12:16:151.2.840.961753.1 .72.3.15|1.2.840.208888.1.13.10 4.2.7.2.727879_[id number] Nikki Miller [facility] 2023-09-09 09:23:03 7643-13-40T51:23:03F ormatting of this note might be different from the original.Patient informed of negative results from appts on 08/27 and 09/04 and that NIPT can take up to 2 weeks to result, verbalized understanding. 87500-8Jsfhdfkle encounter OnpdMD5318-59-42J18:24:22Teleph one encounter NoteTXT1.2.840.165024.1.13.104. 2.7.2.409923|[id number] ble for patient wzzu21868-1NljbTWTQCSGFJPCJurac tted C-CDA narrative [id number] Lei [address] 42473TBOCMPBBKHGIVXYQQBIDMK7861 -04-30T09:24:221.2.840.449338.1 .72.3.15|1.2.840.635227.1.13.10 4.2.7.2.727879_[id number] Kiarra Lei [facility] 2023-09-09 08:55:38 2195-16-43Q69:55:38F ormatting of this note might be different from the original.Copied from [facility] #[id number]. Topic: Clinical - Medical Advice>> Sep 09, 2023 8:51 AM Patient Home Care Manager wrote:Patient calling to speak to nurse regarding lab results. Please call back [id number] encounter [id number] one encounter [id number] ble for patient [id number] tted C-CDA narrative [id number] R [id number] Isa Odom [facility]
[2023-11-06] MEDS ORDERED: HYDROCODONE/APAP 5/325 MG TAB ONE (18:38)
--- NOTE | 2023-11-06 18:38 | ER ---
Nurse's Notes [facility] Name: Callum Alcaraz Age: 28 yrs Sex: Female : 1995 Arrival Date: 11/06/2023 Time: 18:02 Bed IW2 Private MD: Diagnosis: Shingles Presentation: 11/05 18:24 Chief complaint: Patient states: Rash to L side of forehead into hairline for 3 days. L ll1 sided OTT and L ear pain. No known fever. 27-30 weeks . Coronavirus screen: Client denies travel out of the [place] in the last 14 days. At this time, the client does not indicate any symptoms associated with coronavirus-19. Ebola Screen: Patient denies travel to an Ebola-affected area in the 21 days before illness onset. Initial Sepsis Screen: Does the patient meet any 2 criteria? No. Patient's initial sepsis screen is negative. Does the patient have a suspected source of infection? No. Patient's initial sepsis screen is negative. Risk Assessment: Do you want to hurt yourself or someone else? Patient reports no desire to harm self or others. Onset of symptoms was November 04, 2023. 18:24 Method Of Arrival: Ambulatory ll1 18:24 Acuity: MORE 4 ll1 Triage Assessment: 18:27 General: Appears distressed, uncomfortable, Behavior is calm, cooperative, appropriate ll1 for age. General: Reports feeling ill for fatigue for. Pain: Complains of pain in OTT, L facial pain Pain currently is 10 out of 10 on a pain scale. EENT: Reports pain in left ear. Derm: Reports rash L side of forehead into hairline. SANDWICH PEDDLER: 19:03 Verified ll1 Historical: - Allergies: 18:27 No Known Allergies; ll1 - PMHx: 18:27 CVA; detatched retina; Seizures; SHAKEN BABY SYNDROME; ll1 - PSHx: 18:27 section; knee; ll1 - Immunization history:: Adult Immunizations up to date. - Infectious Disease History:: Denies. - Social history:: Smoking status: Patient denies any tobacco usage or history of. - Family history:: not pertinent. Screenin:42 [facility] ED Fall Risk Assessment (Adult) History of falling in the last 3 months, ll1 including since admission No falls in past 3 months (0 pts) Confusion or Disorientation No (0 pts) Intoxicated or Sedated No (0 pts) Impaired Gait No (0 pts) Mobility Assist Device Used No (0 pt) Altered Elimination No (0 pt) Score/Fall Risk Level 0 - 2 = Low Risk Maintained a safe environment, Hourly rounding (assess needs \T\ fall precautionary measures) done. Abuse screen: Denies threats or abuse. Nutritional screening: No deficits noted. Tuberculosis screening: No symptoms or risk factors identified. Assessment: 18:42 Reassessment: No changes from previously documented assessment. Patient and/or family ll1 updated on plan of care and expected duration. Pain level reassessed. Patient is alert, oriented x 3, equal unlabored respirations, skin warm/dry/pink. Vital Signs: 18:24 BP 127 / 80; Pulse 95; Resp 18; Temp 97.8; Pulse Ox 100% on R/A; Weight 63.5 kg; Height ll1 5 ft. 5 in. ; Pain 10/10; 18:24 Body Mass Index 23.30 (63.50 kg, 165.1 cm) ll1 18:24 Pain Scale: Adult ll1 ED Course: 18:04 Patient arrived in ED. mr 18:04 William Dumont MD is Attending Physician. rt 18:27 Triage completed. ll1 18:27 Arm band placed on Patient placed in an exam room, on a stretcher. ll1 18:42 No provider procedures requiring assistance completed. Patient did not have IV access ll1 during this emergency room visit. 19:03 Patient has correct armband on for positive identification. Provided Education on: ll1 return for worsening symptoms. Administered Medications: 18:40 Drug: HYDROcodone-acetaminophen PO 5 mg-325 mg 1 tabs PO once Route: PO; ll1 18:42 Follow up: Response: No adverse reaction ll1 Medication: 19:03 VIS not applicable for this client. ll1 Outcome: 18:37 Discharge ordered by . rt 18:42 Patient left the ED. ll1 18:42 Discharged to home ambulatory, ll1 18:42 Condition: stable 18:42 Discharge instructions given to patient, Instructed on discharge instructions, follow up and referral plans. medication usage, Demonstrated understanding of instructions, follow-up care, medications, Prescriptions given X 1, Signatures: Janie Isbell, Reg Reg Barbara Galindoy, RN RN ll1 William Dumont MD MD rt Corrections: (The following items were deleted from the chart) 18:28 18:24 Pulse 95bpm; Resp 18bpm; Pulse Ox 100% RA; Temp 97.8F; 63.5 kg; Height 5 ft. 5 ll1 in.; BMI: 23.3; Pain 02/18, Adult; ll1 18:29 18:24 Chief complaint: Patient states: Rash to L side of face into hairline for 3 days. ll1 L sided OTT and L ear pain. No known fever. 27-30 weeks ll1
--- NOTE | 2023-11-06 18:38 | EDPHYS ---
Physician Documentation [facility] Name: Callum Alcaraz Age: 28 yrs Sex: Female : 1995 Arrival Date: 11/06/2023 Time: 18:02 Bed IW2 Private MD: ED Physician William Dumont HPI: 11/05 19:05 This 28 yrs old Female presents to ER via Ambulatory with complaints of Rash, rt Ear Pain. 19:05 Patient presents to the ED with a rash to the left side of the face starting yesterday. rt Patient reports occasional spasming type pain as well as pain to the left ear. Patient reports that she is , unsure if she is in the 20 to 30-week range. Denies vaginal bleeding, cramping. Patient states that she took pills milligrams of ibuprofen and acetaminophen prior to arrival. Denies other acute complaints at this time, symptoms are moderate in severity, no other aggravating or alleviating factors.. 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 - Infectious Disease History:: Denies. - Social history:: Smoking status: Patient denies any tobacco usage or history of. - Family history:: not pertinent. ROS: 19:05 Constitutional: Negative for fever, chills, and weight loss, Cardiovascular: Negative rt for chest pain, palpitations, and edema, Respiratory: Negative for shortness of breath, cough, wheezing, and pleuritic chest pain, Abdomen/GI: Negative for abdominal pain, nausea, vomiting, diarrhea, and constipation, Neuro: Negative for headache, weakness, numbness, tingling, and seizure, 19:05 Skin: Positive for rash, Negative for abrasions, Exam: 19:05 Constitutional: This is a well developed, well nourished patient who is awake, alert, rt and in no acute distress. Head/Face: Normocephalic, atraumatic. Chest/axilla: Normal chest wall appearance and motion. Nontender with no deformity. No lesions are appreciated. Cardiovascular: Regular rate and rhythm with a normal S1 and S2. No gallops, murmurs, or rubs. Normal PMI, no JVD. No pulse deficits. Respiratory: Lungs have equal breath sounds bilaterally, clear to auscultation and percussion. No rales, rhonchi or wheezes noted. No increased work of breathing, no retractions or nasal flaring. Abdomen/GI: Soft, non-tender, with normal bowel sounds. No distension or tympany. No guarding or rebound. No evidence of tenderness throughout. MS/ Extremity: Pulses equal, no cyanosis. Neurovascular intact. Full, normal range of motion. Neuro: Awake and alert, GCS 15, oriented to person, place, time, and situation. Cranial nerves II-XII grossly intact. Motor strength 5/5 in all extremities. Sensory grossly intact. Cerebellar exam normal. Normal gait. 19:05 ENT: Left TM clear. 19:05 Skin: Vesicular rash noted to left side of forehead, no apparent ocular involvement, Almeida sign negative. Vital Signs: 18:24 BP 127 / 80; Pulse 95; Resp 18; Temp 97.8; Pulse Ox 100% on R/A; Weight 63.5 kg; Height ll1 5 ft. 5 in. ; Pain 10/10; 18:24 Body Mass Index 23.30 (63.50 kg, 165.1 cm) ll1 18:24 Pain Scale: Adult ll1 MDM: 18:24 Patient medically screened. rt 19:05 Differential diagnosis: Zoster, otitis media. Data reviewed: vital signs, nurses notes. rt Counseling: I had a detailed discussion with the patient and/or guardian regarding the historical points, exam findings, and any diagnostic results supporting the discharge/admit diagnosis, the need for outpatient follow up, to return to the emergency department if symptoms worsen or persist or if there are any questions or concerns that arise at home. ED course: Patient with apparently mild zoster infection at this time, do not suspect ocular involvement. Patient is stable for outpatient care with antivirals. I informed the patient that NSAIDs to include ibuprofen are not indicated during , did recommend that the patient take Tylenol instead. Patient verbalized understanding. 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 Administered Medications: 18:40 Drug: HYDROcodone-acetaminophen PO 5 mg-325 mg 1 tabs PO once Route: PO; ll1 18:42 Follow up: Response: No adverse reaction ll1 Disposition Summary: 11/06/23 18:37 Discharge Ordered Notes: Location: Home rt Problem: new rt Symptoms: are unchanged rt Condition: Stable rt Diagnosis - Shingles rt Followup: rt - With: Private Physician - When: 2 - 3 days - Reason: Discharge Instructions: - Discharge Summary Sheet ll1 - Shingles rt Forms: - Work release form ll1 - Medication Reconciliation Form rt - Antibiotic Education rt - Prescription Opioid Use rt - Patient Portal Instructions rt - Leadership Thank You Letter rt Prescriptions: - Valtrex 1 gram Oral tablet - take 1 tablet ORAL route every 8 hours; 21 tablet; Refills: 0, Product rt Selection Permitted Signatures: Bety Johnson RN RN 1 William Dumont MD MD rt
[2023-11-06 20:19] VITALS: BP 127/80; TEMP 97.8; O2SAT 100
== END 2023-11-06 18:42 | disposition home or self-care (01) ==
LOC: ER 18:02
DX: B02.9 Zoster without complications (principal); Z86.73 Personal history of transient ischemic attack (TIA), and cerebral infarction without residual deficits
CPT/HCPCS: 99283